=== PATIENT | male | born 1950 | race Caucasian/White ===

== ENCOUNTER 2017-05-18 02:50 | Emergency (ER) | payer MEDICARE, OTHER, MEDICAID ==
[2017-05-18 02:59] VITALS: BP 140/30
[2017-05-18] MEDS ORDERED: Sodium Chloride 0.9% 10 ML Syringe FLUSH PRN (03:01)
[2017-05-18] MEDS ORDERED: Albuterol/Ipratropium 3.0-0.5 MG/3 ML Neb Soln NEB ONE (03:03)
[2017-05-18] MEDS ORDERED: methylPREDNISolone Sodium Succinate 125 MG/2 ML SDV IVPUSH ONE (03:03)
--- NOTE | 2017-05-18 03:22 | EDM.PDOC ---
ED HPI GENERAL MEDICAL PROBLEM - General Chief Complaint: Respiratory Problem Stated Complaint: [facility] Time Seen by Provider: 05/18/17 02:56 Source of Information: Reports: Patient, Residential Records History Limitations: Reports: No Limitations - History of Present Illness INITIAL COMMENTS - FREE TEXT/NARRATIVE: The patient presents with increased shortness of breath. This has been going on for a few weeks. He saw his doctor Dr Leal and he says he has a pleural effusion on the left. He is scheduled for a CT on Monday. The shortness of breath got worse early this morning. He has COPD and he is on 2L of oxygen. That has increased to 4 to 5L this morning. It was not helping. He denies headache, fever, chills, cough, chest pain, abdominal pain, nausea or vomiting. He is on dialysis. 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 Onset: Gradual Duration: Week(s): Severity: Moderate Improves with: Reports: None Worsens with: Reports: Movement Associated Symptoms: Reports: Shortness of Breath. Denies: Chest Pain, Cough, Fever/Chills, Headaches, Nausea/Vomiting - Related Data Allergies Allergy/AdvReac Type Severity Reaction Status Date / Time pentoxifylline [From [place]] Allergy Swelling Verified 05/18/17 03:01 Home Meds: Home Meds Furosemide [Lasix] 40 mg PO BID 08/14/13 [History] Insulin Aspart [NovoLOG] 0 units SUBCUT QID 08/14/13 [History] Lisinopril 40 mg PO BID 08/14/13 [History] Metoprolol Succinate [Toprol XL] 50 mg PO DAILY 08/14/13 [History] atorvaSTATin Calcium [Atorvastatin Calcium] 80 mg PO BEDTIME 08/14/13 [History] Dexlansoprazole [Dexilant] 30 mg PO Q2D 10/11/15 [History] Insulin Glargine,Hum.Rec.Anlog [Lantus Solostar] 6 units SUBCUT BEDTIME [History] Levothyroxine Sodium [Synthroid] 175 mcg PO QAM 10/11/15 [History] Acetaminophen 650 mg PO Q6HR PRN 10/28/15 [History] Lactulose 30 ml PO BID PRN 10/28/15 [History] Nitroglycerin [Nitrostat] 0.4 mg SL Q5M PRN 10/28/15 [History] Sennosides [Senna] 2 tab PO DAILY PRN 10/28/15 [History] Alum-Mag Hydroxide-Simeth 2 tsp PO QID PRN 01/21/16 [History] Gabapentin [Neurontin] 100 mg PO BID 01/21/16 [History] Lactobacillus Acidophilus [Acidophilus Lactobacillus] 3 tab PO DAILY 02/09/16 [ History] Bisacodyl [Dulcolax] 1 supp RECTAL DAILY PRN 06/03/16 [History] Polyethylene Glycol 3350 [MiraLAX] 17 gm PO QAM 06/03/16 [History] Albuterol Sulfate [Proair Respiclick] 2 puff INH Q4H 05/18/17 [History] Aspirin [Halfprin] 81 mg PO DAILY 05/18/17 [History] Benzocaine/Menthol [Cepacol Sore Throat Lozenge] 1 sandhya PO QID PRN 05/18/17 [ History] Budesonide/Formoterol [Symbicort 160-4.5 MCG] 2 puff INH BID 05/18/17 [History] Clopidogrel Bisulfate [Plavix] 75 mg PO DAILY 05/18/17 [History] Nut.Tx.Impaired Renal Fxn,Soy [Nepro Carb Steady] 1 dose PO TID PRN 05/18/17 [ History] Sertraline [Zoloft] 25 mg PO DAILY 05/18/17 [History] Sevelamer Carbonate [Renvela] 800 mg PO TID 05/18/17 [History] amLODIPine [Norvasc] 10 mg PO DAILY 05/18/17 [History] guaiFENesin/Dextromethorphan [Tussin Dm Liquid] 10 ml PO TID PRN 05/18/17 [ History] hydrALAZINE [Apresoline] 10 mg PO QID 05/18/17 [History] Past Medical History Cardiovascular History: Reports: CAD, High Cholesterol, Hypertension, PVD Gastrointestinal History: Reports: Chronic Constipation, GERD Genitourinary History: Reports: Dialysis Other Genitourinary History: had dialysis shunt to the left upper arm Neurological History: Reports: Neuropathy, Diabetic Psychiatric History: Reports: None Endocrine/Metabolic History: Reports: Diabetes, Type I, Hypothyroidism Other Endocrine/Metabolic History: on insulin pump - Past Surgical History HEENT Surgical History: Reports: Cataract Surgery, Tonsillectomy Cardiovascular Surgical History: Reports: Coronary Artery Bypass, Vascular Surgery GI Surgical History: Reports: Cholecystectomy, Hernia, Abdominal Musculoskeletal Surgical History: Reports: Other (See Below) Social & Family History - Tobacco Use Smoking Status *Q: Former Smoker Years of Tobacco use: 10 Packs/Tins Daily: 0.6 Used Tobacco, but Quit: Yes Month Tobacco Last Used: 40 years Second Hand Smoke Exposure: No - Caffeine Use Caffeine Use: Reports: Coffee - Alcohol Use Days Per Week of Alcohol Use: 0 - Recreational Drug Use Recreational Drug Use: No Drug Use in Last 12 Months: No Other Recreational Drug Type: unknown - Living Situation & Occupation Living situation: Reports: , Alone, Extended Care Facility Occupation: Retired ED ROS GENERAL - Review of Systems Review Of Systems: See Below Constitutional: Reports: No Symptoms HEENT: Reports: No Symptoms Respiratory: Reports: Shortness of Breath Cardiovascular: Reports: No Symptoms Endocrine: Reports: No Symptoms GI/Abdominal: Reports: No Symptoms : Reports: No Symptoms ED EXAM, GENERAL - Physical Exam Exam: See Below Exam Limited By: No Limitations General Appearance: Alert, No Apparent Distress Ears: Normal External Exam Nose: Normal Inspection Head: Atraumatic, Normocephalic Neck: Normal Inspection Respiratory/Chest: No Respiratory Distress, Decreased Breath Sounds Cardiovascular: Regular Rate, Rhythm, No Edema, No Murmur GI/Abdominal: Soft, Non-Tender, No Organomegaly, No Mass Extremities: Other (Above the knee amputation to the left leg and below the knee amputation) Neurological: Alert, Oriented, No Motor/Sensory Deficits Course - Vital Signs Last Recorded V/S: Last Vital Signs Temp 97.4 F 05/18/17 02:50 Pulse 65 05/18/17 02:50 Resp 22 H 05/18/17 02:50 BP 140/30 L 05/18/17 02:50 Pulse Ox 98 05/18/17 04:17 - Orders/Labs/Meds Orders: Active Orders 24 hr Category Date Time Status Cardiac Monitoring [RC] . DIRECTED Care 05/18/17 03:01 Active EKG Documentation Completion [RC] STAT Care 05/18/17 03:01 Active Oxygen Therapy [RC] PRN Care 05/18/17 03:01 Active Peripheral IV Care [RC] . DIRECTED Care 05/18/17 03:01 Active RT Aerosol Therapy [RC] ASDIRECTED Care 05/18/17 03:03 Active Abdomen Pelvis wo Cont [CT] Stat Exams 05/18/17 04:51 Stop Req Chest wo Cont [CT] Stat Exams 05/18/17 03:02 Taken Sodium Chloride 0.9% [Saline Flush] Med 05/18/17 03:01 Active 10 ml FLUSH ASDIRECTED PRN Peripheral IV Insertion Adult [OM.PC] Stat Oth 05/18/17 03:01 Ordered Medication Orders Sodium Chloride (Saline Flush) 10 ml FLUSH ASDIRECTED PRN PRN Reason: Keep Vein Open Last Admin: 05/18/17 03:11 Dose: 10 ml Labs: Laboratory Tests 05/18/17 05/18/17 Range/Units 03:00 03:00 WBC 4.78 (4.23-9.07) K/mm3 RBC 3.39 L (4.63-6.08) M/mm3 Hgb 10.6 L (13.7-17.5) gm/L Hct 35.0 L (40.1-51.0) % MCV 103.2 H (79.0-92.2) fl MCH 31.3 (25.7-32.2) pg MCHC 30.3 L (32.2-35.5) g/dl RDW Std Deviation 48.1 H (35.1-43.9) fL Plt Count 156 L (163-337) K/mm3 MPV 11.7 (9.4-12.3) fl Neut % (Auto) 77.8 H (34.0-67.9) % Lymph % (Auto) 10.5 L (21.8-53.1) % [place] % (Auto) 9.0 (5.3-12.2) % Eos % (Auto) 2.3 (0.8-7.0) Baso % (Auto) 0.4 (0.1-1.2) % Neut # (Auto) 3.72 (1.78-5.38) K/mm3 Lymph # (Auto) 0.50 L (1.32-3.57) K/mm3 [place] # (Auto) 0.43 (0.30-0.82) K/mm3 Eos # (Auto) 0.11 (0.04-0.54) K/mm3 Baso # (Auto) 0.02 (0.01-0.08) K/mm3 Sodium 137 (136-145) mEq/L Potassium 3.9 (3.5-5.1) mEq/L Chloride 94 L (98-107) mEq/L Carbon Dioxide 20 L (21-32) mEq/L Anion Gap 26.9 H (5-15) BUN 18 (7-18) mg/dL Creatinine 3.5 H (0.7-1.3) mg/dL Est Cr Clr Drug Dosing 18.14 mL/min Estimated GFR (MDRD) 18 (>60) mL/min BUN/Creatinine Ratio 5.1 L (14-18) Glucose 378 H (80-115) mg/dL Calcium 8.9 (8.5-10.1) mg/dL Total Bilirubin 0.8 (0.2-1.0) mg/dL AST 18 (15-37) U/L ALT 16 (16-63) U/L Alkaline Phosphatase 211 H (46-116) U/L Troponin I 0.061 H* (0.00-0.056) ng/mL Total Protein 7.6 (6.4-8.2) g/dl Albumin 3.2 L (3.4-5.0) g/dl Globulin 4.4 gm/dL Albumin/Globulin Ratio 0.7 L (1-2) Meds: Medications Generic Name Dose Route Start Last Admin Trade Name Freq PRN Reason Stop Dose Admin Sodium Chloride 10 ml 05/18/17 03:01 05/18/17 03:11 Saline Flush FLUSH 10 ml ASDIRECTED PRN Administration Keep Vein Open Discontinued Medications Generic Name Dose Route Start Last Admin Trade Name Freq PRN Reason Stop Dose Admin Albuterol/Ipratropium 3 ml 05/18/17 03:03 05/18/17 03:14 Duoneb 3.0-0.5 Mg/3 Ml NEB 05/18/17 03:04 3 ml ONETIME ONE Administration Lorazepam 1 mg 05/18/17 03:43 05/18/17 03:55 Ativan IVPUSH 05/18/17 03:44 1 mg ONETIME ONE Administration Methylprednisolone Sodium Succinate 125 mg 05/18/17 03:03 05/18/17 03:11 Solu-Medrol IVPUSH 05/18/17 03:04 125 mg ONETIME ONE Administration - Re-Assessments/Exams Free Text/Narrative Re-Assessment/Exam: 05/18/17 03:22 I ordered oxygen, IV saline lock, EKG, CXR, duoneb, solumedrol 125mg IV, and labs. 05/18/17 05:12 His WBC was normal at 4.78. His Hgb was low at 10.6. His platelets were low at 156. His anion gap was elevated at 26.9. His creatinine was elevated at 3.5. His GFR was 18. His glucose was 378. His alk phos was elevated at 211. His troponin was elevated at 0.061. It has not been elevated before. He had a hard time laying down for the CT scan so I gave him ativan 1mg IV. 05/18/17 05:[address] scan came back and it shows large tension appearing right pleural effusion. Severe compressive atelectasis of the right lung. Status post heart surgery. The patient needs to be admitted and he needs a thorocentesis. We are not allowed to admit patient's on dialysis. He has dialysis Monday, Monday and Monday. He will need to go to [facility] in [place]. I called there and talked with Dr Rodas and he accepted the patient. Departure - Departure Time of Disposition: 05:20 Disposition: Home, Self-Care 01 Condition: Good Clinical Impression: Pleural effusion on right, Hypoxemia Renal failure Qualifiers: Renal failure chronicity: chronic Chronic kidney disease stage: on chronic dialysis Qualified Code(s): N18.6 - End stage renal disease; Z99.2 - Dependence on renal dialysis; Z99.2 - Dependence on renal dialysis; Z99.2 - Dependence on renal dialysis; Z99.2 - Dependence on renal dialysis - Discharge Information Forms: ED Department Discharge - My Orders Last 24 Hours: My Active Orders 05/18/17 03:01 Cardiac Monitoring [RC] . DIRECTED EKG Documentation Completion [RC] STAT Oxygen Therapy [RC] PRN Peripheral IV Care [RC] . DIRECTED Sodium Chloride 0.9% [Saline Flush] 10 ml FLUSH ASDIRECTED PRN Peripheral IV Insertion Adult [OM.PC] Stat 05/18/17 03:02 Chest wo Cont [CT] Stat 05/18/17 03:03 RT Aerosol Therapy [RC] ASDIRECTED 05/18/17 04:51 Abdomen Pelvis wo Cont [CT] Stat - Assessment/Plan Last 24 Hours: My Active Orders 05/18/17 03:01 Cardiac Monitoring [RC] . DIRECTED EKG Documentation Completion [RC] STAT Oxygen Therapy [RC] PRN Peripheral IV Care [RC] . DIRECTED Sodium Chloride 0.9% [Saline Flush] 10 ml FLUSH ASDIRECTED PRN Peripheral IV Insertion Adult [OM.PC] Stat 05/18/17 03:02 Chest wo Cont [CT] Stat 05/18/17 03:03 RT Aerosol Therapy [RC] ASDIRECTED 05/18/17 04:51 Abdomen Pelvis wo Cont [CT] Stat
[2017-05-18] MEDS ORDERED: LORazepam 2 MG/ML MDV IVPUSH ONE (03:43)
--- NOTE | 2017-05-18 07:28 | CT ---
CT chest Technique: Multiple axial sections were obtained from above the lung apices inferiorly through the lung bases. Intravenous contrast was not utilized. Findings: Large right sided pleural effusion is seen collapsing the entire right lung. Minimal left-sided pleural effusion is seen. Previous sternotomy is noted for CABG. Heart does not appear enlarged. Left lung shows areas of atelectasis and scarring within the left lung base. Scoliosis and degenerative change is seen within the thoracic spine and visualized upper lumbar spine. Impression: 1. Large right-sided pleural effusion collapsing the entire right lung. 2. Areas of scarring and atelectasis within the left base with minimal left-sided pleural effusion. Diagnostic code #5 Agree with preliminary report issued by [facility] ([facility] preliminary report dictated on 05/18/17, 5:40 AM Central Time)
== END 2017-05-18 06:30 | disposition home or self-care (01) ==
LOC: JD.ED 02:50
DX: J90 Pleural effusion, not elsewhere classified (principal); R09.02 Hypoxemia; I12.0 Hypertensive chronic kidney disease with stage 5 chronic kidney disease or end stage renal disease; E10.22 Type 1 diabetes mellitus with diabetic chronic kidney disease; N18.6 End stage renal disease; Z99.2 Dependence on renal dialysis; J44.9 Chronic obstructive pulmonary disease, unspecified; E10.40 Type 1 diabetes mellitus with diabetic neuropathy, unspecified; I25.10 Atherosclerotic heart disease of native coronary artery without angina pectoris; E78.00 Pure hypercholesterolemia, unspecified; E03.9 Hypothyroidism, unspecified; Z95.1 Presence of aortocoronary bypass graft; Z87.891 Personal history of nicotine dependence; Z79.4 Long term (current) use of insulin; Z79.82 Long term (current) use of aspirin; Z79.02 Long term (current) use of antithrombotics/antiplatelets; Z79.899 Other long term (current) drug therapy; Z88.8 Allergy status to other drugs, medicaments and biological substances; Z99.81 Dependence on supplemental oxygen
CPT/HCPCS: 36415; 71250; 80053; 84484; 85025; 93005; 94640; 96374; 96375; 99285; J2060; J2930; J7050; 93010